=== PATIENT | male | born 1965 | race Caucasian/White ===

== ENCOUNTER → 2021-01-25 14:26 | Outpatient (CLI) | payer OTHER, SELFPAY | PROVIDERS: PCP Nurse Practitioner Family; Visit Provider Nurse Practitioner Family | DX: R40.0 Somnolence (principal); R06.83 Snoring ==

== ENCOUNTER → 2022-02-19 10:26 | Outpatient (CLI) | payer BC, SELFPAY ==
--- NOTE | 2022-02-19 10:35 | CT_ITS ---
FINAL REPORT CLINICAL HISTORY: H/O MALIGNANT NEOPLASM OF COLON,LLQ PAIN FINDINGS: CT OF THE ABDOMEN AND PELVIS WITH CONTRAST Axial CT images of the abdomen and pelvis were obtained after the administration of oral and iv contrast. Coronal reformatted images were also obtained and reviewed.This study was performed with techniques to keep radiation doses as low as reasonably achievable (ALARA). Individualized dose reduction techniques using automated exposure control or adjustment of mA and/or kV according to the patient's size were employed. Abdomen: The lung bases are clear. The heart is normal in size. The liver is fatty infiltrated. There is mild wall thickening of the gallbladder which is nonspecific. The spleen is unremarkable. No adrenal mass is present. The pancreas has an unremarkable appearance. There is a 4.5 cm cyst in the lower pole of the left kidney. The aorta is normal in caliber. There is no free fluid or adenopathy. There are postoperative changes of the stomach. There is a small supraumbilical hernia containing fat. Pelvis: The appendix is normal. The urinary bladder is unremarkable. No inflammatory process is seen. There is no evidence of mass or adenopathy. There is no evidence of bowel obstruction. IMPRESSION: Fatty infiltrated liver. Mild non-specific gallbladder wall thickening. Cyst in the lower pole left kidney. Reviewed, Interpreted and Dictated by Robby Estevez III, MD Transcribed by Tenisha Lechuga Authenticated and [facility]
== END ==
PROVIDERS: PCP Nurse Practitioner Family; Visit Provider Nurse Practitioner Family
DX: R10.32 Left lower quadrant pain (principal); Z85.038 Personal history of other malignant neoplasm of large intestine
CPT/HCPCS: 74177; Q9967

== ENCOUNTER 2023-09-24 17:22 | Emergency (ER) | payer BC, SELFPAY ==
[2023-09-24 17:23] VITALS: BP 144/79; PULSE 82; RESP 20; TEMP 36.6; O2SAT 95; BMI 31.4
--- NOTE | 2023-09-24 17:45 | ED_ITS ---
Discharge Plan Disposition Patient Disposition: Home, Self-Care Chief Complaint: Eye Problems Prescriptions Prescriptions: No Action cetirizine 10 MG tablet 10 mg PO DAILY metformin 1,000 MG tablet 1,000 mg PO DAILY amoxicillin-pot clavulanate 1 EACH tablet 1 tab PO Q12H 7 Days Qty: 14 0RF fluticasone propionate 120 SPR/BOT bottle 2 spr NS DAILY Qty: 1 0RF Rx Instructions: each nostril daily Referrals Follow up/Referrals: Merry Justin APRN [Primary Care Provider] - See instructions Activity Restrictions/Add. Instructions Additional Instructions/Restrictions: Call your family doctor to establish care for this visit to the emergency department and schedule follow-up within 48 hours to ensure improvement. If you have any worsening of your condition or any other concerning signs or symptoms, return to the emergency department or your primary care doctor for further evaluation. Erythromycin ointment 3 times daily for 5 days. Clinical Impressions Clinical Impression: Intraocular foreign body Qualifiers: Encounter type: initial encounter Laterality: right Qualified Code(s): S05.51XA - Penetrating wound with foreign body of right eyeball, initial encounter Discharge ED Provider: Bryan Pressley General Adult HPI General Chief complaint: Eye Problems Stated complaint: FO09/24 poss metal Time Seen by Provider: 09/24/23 17:29 Mode of Arrival: Ambulatory Source of Information: Patient Limitations: No Limitations Description of Symptoms (Recalled from ER Triage Doc. by RN): pt was working wit h metal and he believes got a piece of rust in his right eye around 1430 today. pt flushed eye out with water but still feels like something is in there. History of Present Illness HPI narrative: Well-appearing 58-year-old male presenting with foreign body in his right eye. He was sitting [id number] just before arrival. Calera the metal hit his eye. Having mild to moderate pain. No vision changes, nausea vomiting, headache, or any other concerns. Last tetanus was too long ago to remember. Related Data Home Medications Medication Instructions Recorded Confirmed cetirizine 10 mg tablet 10 mg PO DAILY ALLERGIES 05/01/19 05/01/19 metformin 1,000 mg tablet 1,000 mg PO DAILY DM 05/01/19 05/01/19 Previous Rx's Medication Instructions Recorded amoxicillin 875 mg-potassium 1 tab PO Q12H 7 days #14 tabs 05/01/19 clavulanate 125 mg tablet fluticasone propionate 50 2 spr NS DAILY ##1 05/01/19 mcg/actuation nasal spray,suspension Allergies Allergy/AdvReac Type Severity Reaction Status Date / Time No Known Allergies Allergy Verified 05/01/19 14:17 [facility] Disclaimer: The information contained in this section may have been updated after the patient was seen, as this information can be updated by other users. Social History Smoking Status: Current every day smoker tobacco type: cigarettes packs per day: 1 alcohol intake: never current occupational status: other Travel in the last 8 weeks: None ROS Obtained: Yes All systems reviewed & no additional complaints except as documented Physical Exam General General appearance: alert and in no apparent distress Head Head exam: atraumatic and normocephalic Eye Eye exam: Present PERRL, EOMI and other (Metal foreign body at 7 o'clock position overlying right iris. No Layo sign on fluorescein exam. Focal uptake. No further foreign bodies on upper or lower lids) ENT ENT exam: Present mucous membranes moist Neck Neck exam: Present normal inspection, full ROM and trachea midline Respiratory Respiratory exam: Absent respiratory distress, wheezes, stridor, accessory muscle use or prolonged expiratory phase Cardiovascular Cardiovascular exam: Present normal rhythm Abdominal Exam Abdominal exam: Present soft; Absent distention, tenderness, guarding, rebound or rigidity Extremities Exam Extremities exam: Absent edema Neurological Exam Neurological exam: Present alert, oriented X3, CN II-XII intact and normal gait; Absent motor sensory deficit Skin Skin exam: Present warm and dry; Absent diaphoresis or erythema Medical Decision Making Medical Records Medical records reviewed: Yes I reviewed the patient's medical records. Burton Inquiry Pt receiving controlled substance: No Burton was queried for this patient: No Vital Signs: 09/24/23 17:23 Temperature 97.9 F Temperature Source Oral Pulse Rate [Right Radial] 82 Respiratory Rate 20 Blood Pressure [Right Arm] 144/79 H Blood Pressure Mean [Right Arm] 100 02 Sat by Pulse Oximetry 95 Oxygen Delivery Method Room Air Medical Decision Narrative: Well-appearing 58-year-old male presenting with foreign body in his right eye. He was sitting vxeeo-cx-[id number] just before arrival. Calera the metal hit his eye. Having mild to moderate pain. No vision changes, nausea vomiting, headache, or any other concerns. Last tetanus was too long ago to remember. History was obtained via conversation with patient. On arrival, patient hemodynamically stable, alert, oriented x4, appropriate, GCS 15, moving all extremities spontaneously, pupils equal and reactive to light. Full physical exam performed and significant for focal uptake around metalforeign body. Metal foreign body at 7 o'clock position overlying the iris. No Layo sign. Otherwise normal Differential includes foreign body, among others. Patient was given Tdap, tetracaine, fluorescein for symptomatic management and correction of underlying abnormalities. Patient was given erythromycin ointment here in the emergency department for home-going. Metal foreign body removed, see foreign body note. Because patient at baseline without signs or symptoms of clinical decompensation, deemed appropriate for discharge. Results were relayed to patient who voiced understanding and were agreeable to outpatient management and follow up. At the time of discharge the patient was hemodynamically stable, tolerating PO, and mobilizing appropriately. Procedures Eye Exam/FB Removal Location: eye (R) Topical anesthetic used: tetracaine Fluorescein Stick(s) used: Yes Time Out performed: No Procedure performed under: direct visualization with magnification Foreign body: metal Evidence of corneal penetration: No Technique: irrigation and cotton tip swab Post-procedure medication: ophthalmic antibiotic and topical anesthetic Patient tolerated procedure: well Critical Care Critical Care Time Critical Care Time: No
[2023-09-24] MEDS: TET/DIPHTH/PERT-ADULT 0.5ML SYRINGE 0.5 ML IM (17:58)
--- NOTE | 2023-09-24 17:59 | PC.NURSE ---
dr montilla at bedside to update pt and family
[2023-09-24] MEDS: FLUORESCEIN SODIUM 1MG STRIP 1 MG OP (18:03)
[2023-09-24] MEDS: TETRACAINE 0.5% OPTH SOL 15ML OP (18:04)
[2023-09-24 18:06] VITALS: BP 145/70; PULSE 70; RESP 20; TEMP 36.7; O2SAT 97
== END 2023-09-24 18:07 | disposition home or self-care (01) ==
PROVIDERS: Emergency Provider Emergency Medicine; PCP Nurse Practitioner Family
DX: F17.210 Nicotine dependence, cigarettes, uncomplicated; W22.8XXA Striking against or struck by other objects, initial encounter; T15.01XA Foreign body in cornea, right eye, initial encounter
CPT/HCPCS: 65205; 90471; 90715; 99283

== ENCOUNTER 2023-11-03 15:11 | Outpatient (CLI) | payer SELFPAY ==
--- NOTE | 2023-11-03 15:24 | XR_ITS ---
FINAL REPORT CLINICAL HISTORY: LT FOOT PAIN FINDINGS: Left foot Three views were obtained. There is no acute fracture or dislocation. The joint spaces appear normal. No soft tissue abnormality is identified. There is a posterior calcaneal spur. IMPRESSION: No acute process. Reviewed, Interpreted and Dictated by Robby Estevez III, MD Transcribed by Ria Weller Authenticated and [facility]
--- NOTE | 2023-11-03 15:24 | XR_ITS ---
FINAL REPORT CLINICAL HISTORY: LT ANTERIOR KNEE PAIN COMPARISON: None FINDINGS: LEFT KNEE: Three views of the left knee were obtained. There is no acute fracture or dislocation. Visualized joint spaces are normally aligned. There is no joint effusion. There is anterior soft tissue swelling. IMPRESSION: Soft tissue swelling without acute bony abnormality. Reviewed, Interpreted and Dictated by Robby Estevez III, MD Transcribed by Britany Bartlett Authenticated and . [facility]
== END 2023-11-03 23:59 ==
PROVIDERS: PCP Nurse Practitioner Family; Visit Provider Nurse Practitioner Family
DX: M25.562 Pain in left knee (principal); M79.672 Pain in left foot
CPT/HCPCS: 73562; 73630

== ENCOUNTER 2023-12-23 15:19 | Outpatient (CLI) | payer OTHER, BC, SELFPAY ==
--- NOTE | 2023-12-23 15:27 | MR_ITS ---
FINAL REPORT TECHNIQUE: Multiplanar MR without contrast CLINICAL HISTORY: ACUTE KNEE PAIN FINDINGS: Articular cartilage: Grade III chondromalacia patella. Mild diffuse thinning of the articular cartilage. Marrow signal: A few sclerotic lesions are seen which are likely bone islands. No marrow edema. Joint fluid: Small joint effusion with a presumed ganglion cyst measuring 16 mm along the posterior tibiofibular joint. Menisci: Normal morphology without tear Ligaments: Collateral and cruciate ligaments intact IMPRESSION: Degenerative changes without meniscal or ligamentous injury. Reviewed, Interpreted and Dictated by Nola Tracy MD Transcribed by Heather Kent Authenticated and [facility]
== END 2023-12-23 23:59 | disposition home or self-care (01) ==
LOC: RAD 15:20
PROVIDERS: PCP Nurse Practitioner Family; Visit Provider Nurse Practitioner Family
DX: M25.562 Pain in left knee (principal)
CPT/HCPCS: 73721

== ENCOUNTER 2023-12-28 13:18 | Outpatient (CLI) | payer OTHER, SELFPAY ==
--- NOTE | 2023-12-28 13:24 | XR_ITS ---
FINAL REPORT CLINICAL HISTORY: LT SHOULDER PAIN FINDINGS: LEFT SHOULDER 3 views of the left shoulder were obtained. There is no acute fracture or dislocation. There are mild degenerative changes of the acromioclavicular and glenohumeral joints. Visualized joint spaces are normally aligned. Soft tissues are unremarkable. IMPRESSION: No acute bony abnormality. Reviewed, Interpreted and Dictated by Robby Estevez III, MD Transcribed by Heather Kent Authenticated and [facility]
== END 2023-12-28 23:59 | disposition home or self-care (01) ==
LOC: RAD 13:21
PROVIDERS: PCP Nurse Practitioner Family; Visit Provider Nurse Practitioner Family
DX: M25.512 Pain in left shoulder (principal)
CPT/HCPCS: 73030

== ENCOUNTER 2024-09-02 12:41 | Outpatient (CLI) | payer BC, SELFPAY ==
--- NOTE | 2024-09-02 12:48 | MR_ITS ---
FINAL REPORT CLINICAL HISTORY: LT SHOULDER PAIN FINDINGS: Multi planar MR imaging of the left shoulder was performed. There is a large partial full-thickness tear of the distal supraspinatus tendon. Tendon is retracted 10 mm. Fluid is seen in the subacromial/subdeltoid bursa. The anterior and posterior glenoid anthony appear intact. The biceps tendon appears intact. There are moderate hypertrophic changes of the AC joint. IMPRESSION: High-grade partial full-thickness tear of the supraspinatus tendon. Moderate hypertrophic changes of osteoarthritis of the AC joint. Reviewed, Interpreted and Dictated by Devon Leblanc MD Transcribed by Ria Weller Authenticated and [facility]
--- NOTE | 2024-09-02 12:54 | XR_ITS ---
FINAL REPORT CLINICAL HISTORY: RULE OUT MEALLIC FOREIGN BODY FOR MRI FINDINGS: ORBITS Look up and look down views were obtained. No fracture is identified. The sinuses are clear. No foreign body is identified. IMPRESSION: No acute process. Reviewed, Interpreted and Dictated by Devon Leblanc MD Transcribed by Kala Grewal Authenticated and [facility]
== END 2024-09-02 23:59 | disposition home or self-care (01) ==
LOC: RAD 12:42
PROVIDERS: PCP Nurse Practitioner Family; Visit Provider Nurse Practitioner Family
DX: M25.512 Pain in left shoulder (principal); G89.29 Other chronic pain; Z03.823 Encounter for observation for suspected inserted (injected) foreign body ruled out
CPT/HCPCS: 70200; 73221

== ENCOUNTER 2024-12-12 08:39 | Outpatient (CLI) | payer BC, SELFPAY ==
--- NOTE | 2024-12-12 08:42 | XR_ITS ---
FINAL REPORT CLINICAL HISTORY: Right shoulder pain x 1 yr. fall x 1 yr COMPARISON: None FINDINGS: 2 views of the right shoulder were obtained. There is no acute fracture or dislocation. There is degenerative joint disease. There is no acute soft tissue abnormality. IMPRESSION: Degenerative joint disease without acute osseous abnormality of the right shoulder. Reviewed, Interpreted and Dictated by Lauren Dickinson MD Transcribed by Brandy Spears Authenticated and [facility]
--- NOTE | 2024-12-12 08:42 | XR_ITS ---
FINAL REPORT CLINICAL HISTORY: Left shoulder pain x 1 yr. fall x 1 yr COMPARISON: 12/28/2023 FINDINGS: 2 views of the left shoulder were obtained. There is no acute fracture or dislocation. There is degenerative joint disease, which is similar to the prior exam. There is no acute soft tissue abnormality. IMPRESSION: Degenerative joint disease without acute osseous abnormality of the left shoulder. Reviewed, Interpreted and Dictated by Lauren Dickinson MD Transcribed by Brandy Spears Authenticated and [facility]
== END 2024-12-12 23:59 | disposition home or self-care (01) ==
LOC: RAD 08:40
PROVIDERS: PCP Nurse Practitioner Family; Visit Provider Physician Assistant
DX: M19.012 Primary osteoarthritis, left shoulder (principal); M19.011 Primary osteoarthritis, right shoulder
CPT/HCPCS: 73030

== ENCOUNTER 2025-05-28 11:54 | Outpatient (CLI) | payer BC, SELFPAY ==
[2025-05-28 19:48] LABS: Influenza A, PCR Not Detected (NotDetected); Influenza B, PCR Not Detected (NotDetected)
[2025-05-28 21:12] LABS: Coronavirus 19, PCR Detected (NotDetected)
--- OUTSIDE RECORDS SUMMARY | 2025-05-29 11:56 | XMS_ITS | Referral Summary ---
Author Organization [employer] ([place], [place], [place], [place]) Address [address] [place] [address] Care Team Providers Care Commercial Collections Driver Name Role Phone Provider, Generic External Data Primary Care Pro vider Unavailable Social History Tobacco Use Types Packs/Day Years Used Date Smoking Tobacco: Never Assessed Food Insecurity Answer Date Recorded Food run out past 12 months Not on file 08/24 Food did not last past 12 months Not on file 09/11/2023 Employment Answer Date Recorded Help finding and keeping a job Not on file 0 09/11/2023 Family and Community Support Answer Jose e Recorded Help with Day to Day Activities Not on file 09/11/2023 Feeling Lonely or Isolated Not on file 09/11 Educational Attainment Answer Date Harry rded Speak language other than Congolese at home Not on file 09/11/2023 Want help with school or training Not on file 09/11/2023 Substance Use Answer Date Recorded Used prescription meds for non-medical reasons N ot on file 09/11/2023 Used illegal drugs past 12 months Not on file 09/11/2023 Sex and Gender Information Value Date Recorded Sex Assigned at Not on file Legal Sex Male 7:15 PM CDT Gender Identity Not on file Sexual Orientation Not on file Plan of Treatment Not on file Care Teams Commercial Collections Driver Relationship Specialty Start Date End Date Provider, Generic External Data PCP - General 09/24/22
--- OUTSIDE RECORDS SUMMARY | 2025-05-29 11:56 | XMS_ITS | Clinical Summary ---
Author Organization [employer] ([place], [place], [place], [place]) Address [address] [place] [address] Care Team Providers Care Bias Binding Cutter Name Role Phone Provider, Generic External Data [...] Date Harry rded Speak language other than Mauritanian at home Not on file 09/11/2023 Want [...] Orientation Not on file Plan of Treatment Health Maintenance Due Date Last Done Comments CT Colonography 1966 Colonoscopy 1966 Colorectal Cancer Screening 1966 FOBT/FIT 1966 Fit-DNA (Cologuard) 1966 Sigmoidoscopy 1966 Depression Screening (12+) 1978 Tobacco Cessation Counseling and Screening (12+) 06/09 HIV Screening 1981 Hepatitis C Screening 1984 Lipid Panel 2001 Pneumococcal 50+ years (1 of 1 - PCV) 2016 Shingles Vaccine (Zoster) (1 of 2) 2016 COVID-19 VACCINE ( season) 2025 Influenza Vaccine (#1) 2025 DTAP/TDAP/TD VACCINES (2 - Td or Tdap) 09/24/2033 Care Teams Bias Binding Cutter Relationship Specialty Start Date End Date Provider, Generic External Data PCP - General 09/24/22
--- OUTSIDE RECORDS SUMMARY | 2025-05-29 11:56 | XMS_ITS | Continuity of Care Document ---
Author Organization [facility], SURGERY SCHEDULE Address [address] [place] [address] Care Team Providers Care Heat Treat Technician Name Role Phone LB COONEY Hematology/Oncology DRAGAN ISAACS Primary Care Provider Assessment No assessment recorded. Plan of Treatment Reminders Order Date Submit Date Provider Last Modified By Organization Details Last Modified Time Details Appointments None record ed. Lab None record ed. Referral None record ed. Procedures None record ed. Surgeries None record ed. Imaging None record ed. Medication Orders None record ed. Patient TargetsNo targets recorded. Patient InstructionsNo instructions recorded. Reason for Referral None Reported. Results Created Date Observation Date Name Description Value Unit Range Abnormal Flag Note LastModifiedBy Organization Detail LastModifiedTime 04/03/20 25 04/03/2025 SURGI XAVI surgical SEE BELOW normal Surgi xavi Patho logy Repor shahbaz GARNICA NAME: GIORGIO PASTOR PATH: [id number] DATE of : 06/09 3 Copy to: Diagn osis: Desce nding polyp : Tubul ar adeno ma. SOURC E OF SPECI MEN: COLON POLYP , DESCE NDING CLINI XAVI INFOR MATIO N: ONE SMALL 4-6 mm POLYP DESCE NDING COLON D 12.4 Gross Descr iptio n: Nathan nt's name and date of verif ied. Recei florencia in forma nas label ed with the nathan nt's name and desig nated desc endin g polyp are two fragm ents of pale hopkins tissu e measu ring 0.3 and 0.6 cm. Entir pamela submi tted in one casse tte label ed A1. SB 04/03 02:42 PM Micro scopi c Descr iptio n: A micro scopi c exami natio n has been perfo rmed and the resul t(s) are as noted above . MD Ryan SWARTZe d Out Date: 04/04 09:27 Page 1 of 1 Not Available [facility] [address] [place] [address], [id number], 04/04/2025 09:28:15 Result Notes None recorded. 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 Medical Equipment None Reported. Allergies No known drug allergies Medications Name Sig Start Date Stop Date Status Note LastModified by Organization Details LastModified Time vitamin d3 (tonie) 50mcg cap TAKE 1 CAPSULE BY MOUTH ONCE DAILY active Not Available Not Available No t Available amoxicillin 500 mg capsule TAKE 1 CAPSULE BY MOUTH THREE TIMES DAILY 03/12 completed Not Available Not Available Not Available methocarbam ol 500 mg tablet TAKE 2 TABLETS BY MOUTH EVERY 6 HOURS NEEDED active Not Available Not Available No t Available metformin 500 mg tablet active Not Available Not Available Not Available sildenafil 50 mg tablet TAKE 1 TABLET BY MOUTH ONCE DAILY NEEDED active Not Available Not Available No t Available cetirizine 10 mg tablet active Not Available Not Available Not Available ibuprofen 800 mg tablet TAKE 1 TABLET BY MOUTH THREE TIMES DAILY WITH FOOD active Not Available Not Available No t Available amlodipine 5 mg tablet TAKE 1 TABLET BY MOUTH ONCE DAILY active Not Available Not Available No t Available sildenafil 100 mg tablet TAKE 1 TABLET BY MOUTH ONCE DAILY NEEDED active Not Available Not Available No t Available meloxicam 7.5 mg tablet TAKE 1 TABLET BY MOUTH ONCE DAILY active Not Available Not Available No t Available losartan 100 mg-hydrochl orothiazide 25 mg tablet TAKE 1 TABLET BY MOUTH ONCE DAILY active Not Available Not Available No t Available oxycodone-a cetaminophe n 5 mg-325 mg tablet TAKE 1 TABLET BY MOUTH EVERY 4 HOURS NEEDED FOR PAIN active Not Available Not Available No t Available methocarbam ol 750 mg tablet TAKE 1 TABLET BY MOUTH TWICE DAILY NEEDED active Not Available Not Available No t Available doxycycline monohydrate 100 mg capsule TAKE 1 CAPSULE BY MOUTH TWICE DAILY FOR 10 DAYS 03/12 completed Not Available Not Available Not Available cyanocobala min (vit B-12) 1,000 mcg/mL injection solution USE DIRECTED ONCE A WEEK INTRAMUSC ULARLY FOR 4 WEEKS THEN ONCE A MONTH active Not Available Not Available No t Available hydrochloro thiazide 25 mg tablet active Not Available Not Available No t Available gabapentin 100 mg capsule active Not Available Not Available Not Available albuterol sulfate HFA 90 mcg/actuati on aerosol inhaler INHALE 2 PUFFS BY MOUTH EVERY 4 HOURS NEEDED active Not Available Not Available No t Available losartan 100 mg tablet active Not Available Not Available Not Available rosuvastati n 5 mg tablet TAKE 1 TABLET BY MOUTH ONCE DAILY AT BEDTIME FOR 30 DAYS active Not Available Not Available No t Available rosuvastati n 10 mg tablet TAKE 1 TABLET BY MOUTH ONCE DAILY AT BEDTIME active Not Available Not Available No t Available peg 3350-electr olytes 236 gram-22.74 gram-6.74 gram-5.86 gram solution DIRECTED active Not Available Not Available No t Available cholecalcif lew (vitamin D3) 50 mcg (2,000 unit) capsule TAKE 1 CAPSULE BY MOUTH ONCE DAILY active Not Available Not Available No t Available Suprep Bowel Prep Kit 17.5 gram-3.13 gram-1.6 gram oral solution Take 177 mL by oral route as directed. 01/19 completed Not Available Not Available Not Available Clenpiq 10 mg-3.5 gram-12 gram/160 mL oral solution As directed 2020 active Not Available Not Available Not Avai lable Plenvu 140 gram-9 gram-5.2 gram powder packs MIX AND TAKE DIRECTED active Not Available Not Available No t Available Ozempic 1 mg/dose (4 mg/3 mL) subcutaneou s pen injector INJECT 1 MG SUBCUTANE OUSLY ONCE A WEEK active Not Available Not Available No t Available Mounjaro 7.5 mg/0.5 mL subcutaneou s pen injector INJECT 1 SYRINGE SUBCUTANE OUSLY ONCE A WEEK active Not Available Not Available No t Available Mounjaro 10 mg/0.5 mL subcutaneou s pen injector INJECT 1 AUTO-INJE CTOR SUBCUTANE OUSLY ONCE A WEEK active Not Available Not Available No t Available Ozempic 0.25 mg or 0.5 mg (2 mg/3 mL) subcutaneou s pen injector INJECT 0.5MG SUBCUTANE OULSY ONCE A WEEK active Not Available Not Available No t Available Suflave 178.7 gram-7.3 gram-0.5 gram oral solution TAKE DIRECTED active Not Available Not Available No t Available Vitals None Recorded Social History Question Answer Notes LastModified by Organizat ion Details LastModified Time Tobacco Smoking Status Current Every Day Smoker Samanta Huerta [facility] 08/06/2016 11:26:12 What Was The Date Of Your Most Recent Tobacco Screening? 01/19/2019 Information n ot available 10/11/2019 How Much Tobacco Do You Smoke? 2 PPD [email or web address] Information not available 08/06/2016 How Many Years Have You Smoked Tobacco? 30 Information not available 08/06/2016 Sex: Unknown Functional Status None recorded. Mental Status None recorded. Family History Nothing Reported Notes:family history of canc er, sister ovarin cancer hypertension mother, father, sister, maternal grandmother and grandfather stroke syndrome, paternal grandmother, sister, mother family history of heart attack Medical History Condition Response Cancer Y Hypertension Past Encounters Encounter ID Performer Location Encounter Start Date Encounter Closed Date Diagnosis/Indication Diagnosis SNOMED-CT Code Diagnosis ICD10 Code Diagnosis IMO Codes Diagnosis Note [id number] ELLY WARE MD SURGERY SCHEDULE [address] [place] [address] 04/03/2025 06:23:54 04/03/2025 06:26:24 Health Concerns Section Related Observation LastModified by Organization Detai ls LastModified Time None Recorded Concern Status LastModified by Organization Details LastModified Time None Recorded Payers Encounter Date Sequence Insurance Name Policy Number Policy Gallo Covered Member ID Gallo Member ID Guarantor Name 04/03/2025 2 [place] [employer] [facility] [id number] 1 Alexis Miller [id number] Alexis Miller
--- OUTSIDE RECORDS SUMMARY | 2025-05-29 11:56 | XMS_ITS | Data Portability ---
Author Organization [place] DAVIS Dennis [place] [facility] Address [address] [facility] [facility] [address] [place] [address] Care Team Providers Care Petal Cutter Name Role Phone LB COONEY Hematology/Oncology DRAGAN ISAACS Primary Care Provider Assessment No assessment recorded. Plan of Treatment Reminders Order Date Submit Date Provider Last Modified By Organization Details Last Modified Time Details Appointments None recorded. Lab urinalysis panel, auto [address] [facility], [address], [place], [address], 3 09:49:28 testosteron e, total, serum 2022 023 [email or web address] [facility], [address] [place] [address], [address], 3 14:33:02 testosteron e, free, serum 2022 023 [facility], [address] [place] [address], [address], 3 14:33:02 Referral None recorded. Procedures None recorded. Surgeries None recorded. Imaging None recorded. Medication Orders None recorded. Patient TargetsNo targets recorded. Patient InstructionsNo instructions recorded. Reason for Referral None Reported. Results Created Date Observation Date Name Description Value Unit Range Abnormal Flag Note LastModifiedBy Organization Detail LastModifiedTime 02/12/20 21 02/11/2021 surgi xavi patho logy study surgical SEE BELOW Depar tment of Patho logy Surgi xavi Patho logy Repor t NAME: GIORGIO PASTOR HY PATH. :-2 Copy to: Diagn osis: A) Ascen ding polyp : Fragm ents of tubul ar adeno ma. No evide nce of high- grade dyspl shanique or malig anup . B) Trans verse polyp : Tubul ar adeno ma. No evide nce of high- grade dyspl shanique or malig anup . SOURC E OF SPECI MEN: COLON POLYP , ASCEN DING COLON POLYP , TRANS VERSE CLINI XAVI INFOR MATIO N: HX OF POLYP S Gross Descr iptio n: A) Recei florencia in forma nas label ed with the patie nt's name and desig nated as asce nding polyp are two fragm ents of pale hopkins tissu e each measu ring appro ximat pamela 0.3 cm. Entir pamela submi tted in one casse tte. B) Recei florencia in forma nas label ed with the patie nt's name and desig nated as chandra svers e polyp is a singl e fragm ent of pale hopkins tissu e measu ring 0.5 cm. Entir pamela submi tted in one casse tte. MT 02/11 11:02 AM Micro scopi c Descr iptio n: A micro scopi c exami natio n has been perfo rmed. MAGALI Tan MD Miesha d Out Date: 02/12 11:00 Page 1 of 1 Not Available [facility] [address], [place], [address], 02/12/2021 11:01:48 03/23/20 23 03/23/2023 SURGI XAVI surgical SEE BELOW normal Depar tment of Patho logy Surgi xavi Patho logy Repor t NAME: GIORGIO PASTOR PATH. :ST-2 47 Copy to: Diagn osis: Ascen ding polyp s: Multi ple fragm ents of tubul ar adeno mas -Nega tive for high- grade dyspl shanique and malig anup SOURC E OF SPECI MEN: COLON POLYP , ASCEN DING CLINI XAVI INFOR MATIO N: HX OF COLON CA Gross Descr iptio n: Recei florencia in forma nas label ed with the patie nt's name and desig nated as asce nding polyp s are seven fragm ents of pale hopkins tissu e rangi ng in size from 0.2 to 0.6 cm. Entir pamela submi tted in one casse tte. MT 03/23 12:07 PM Micro scopi c Descr iptio n: Micro scopi c exami natio n perfo rmed. MINNIE Rico BELTRAN SALOMON-P MD MYRANDA Miesha d Out Date: 03/24 09:52 Page 1 of 1 Not Available [facility] [address] [place], [address], 03/24/2023 09:53:17 07/07/20 23 07/07/2023 TESTO STERO NE, TOTAL testosterone , total 367 NG/dL 193-74 0 normal Refer ence range is for age 50 years and over. Not Available [facility] [address] [place], [address], 07/07/2023 19:17:25 07/07/20 23 07/13/2023 TESTO STERO NE, FREE testosterone , free 43.0 pg/mL 46.0-2 24.0 low (Note ) The jacqueline ntrat ion of free testo stero ne is deriv ed from a padmini penaloza model using total testo stero ne by LCMSM S, sex hormo ne kiah ng globu nas and album in. This test was devel oped and its eliseo tical perfo rmanc e aleksey cteri stics have been deter mined by [facility]. It has not been clear ed or appro florencia by the FDA. This assay has been valid ated pursu ant to the CLIA regul ation s and is used for clini xavi purpo ses. MDF med fusio n [address] [facility] [address] [place] [address] [phone] Ady de MD Not Available [facility] [address], [place], [address], 07/13/2023 05:18:07 08/07/20 23 08/07/2023 urina lysis panel , auto Unknown Analyte Clean Catch Not Available [facility] [address], [place], [address], 08/07/2023 09:35:01 08/07/20 23 08/07/2023 urina lysis panel , auto Unknown Analyte Yellow Not Available [facility] [address], [place], [address], 08/07/2023 09:35:01 08/07/20 23 08/07/2023 urina lysis panel , auto Unknown Analyte Clear Not Available [facility] [address], [place], [address], 08/07/2023 09:35:01 08/07/20 23 08/07/2023 urina lysis panel , auto Unknown Analyte 1.000 Not Available [facility] [address], [place], [address], 08/07/2023 09:35:01 08/07/20 23 08/07/2023 urina lysis panel , auto Unknown Analyte 1.003- 1.035 Not Available [facility] [address], [place], [address], 08/07/2023 09:35:01 08/07/20 23 08/07/2023 urina lysis panel , auto Unknown Analyte 7.0 Not Available [facility] [address], [place], [address], 08/07/2023 09:35:01 08/07/20 23 08/07/2023 urina lysis panel , auto Unknown Analyte 5.0-8. 0 Not Available [facility] [address], [place], [address], 08/07/2023 09:35:01 08/07/20 23 08/07/2023 urina lysis panel , auto Unknown Analyte 75 Adam/ul (+) Not Available [facility] [address], [place], [address], 08/07/2023 09:35:01 08/07/20 23 08/07/2023 urina lysis panel , auto Unknown Analyte Negati ve Not Available [facility] [address], [place], [address], 08/07/2023 09:35:01 08/07/20 23 08/07/2023 urina lysis panel , auto Unknown Analyte Negati ve Not Available [facility] [address], [place], [address], 08/07/2023 09:35:01 08/07/20 23 08/07/2023 urina lysis panel , auto Unknown Analyte Negati ve Not Available [facility] [address], [place], [address], 08/07/2023 09:35:01 08/07/20 23 08/07/2023 urina lysis panel , auto Unknown Analyte Negati ve Not Available [facility] [address], [place], [address], 08/07/2023 09:35:01 08/07/20 23 08/07/2023 urina lysis panel , auto Unknown Analyte Negati ve Not Available [facility] [address], [place], [address], 08/07/2023 09:35:01 08/07/20 23 08/07/2023 urina lysis panel , auto Unknown Analyte Normal Not Available [facility] [address], [place], [address], 08/07/2023 09:35:01 08/07/20 23 08/07/2023 urina lysis panel , auto Unknown Analyte Normal Not Available [facility] [address], [place], [address], 08/07/2023 09:35:01 08/07/20 23 08/07/2023 urina lysis panel , auto Unknown Analyte 15 mg/dl (Sm) Not Available [facility] [address], [place], [address], 08/07/2023 09:35:01 08/07/20 23 08/07/2023 urina lysis panel , auto Unknown Analyte Negati ve Not Available [facility] [address], [place], [address], 08/07/2023 09:35:01 08/07/20 23 08/07/2023 urina lysis panel , auto Unknown Analyte 4 mg/dl Not Available [facility] [address], [place], [address], 08/07/2023 09:35:01 08/07/20 23 08/07/2023 urina lysis panel , auto Unknown Analyte Normal 1 mg/dl Not Available [facility] [address], [place], [address], 08/07/2023 09:35:01 08/07/20 23 08/07/2023 urina lysis panel , auto Unknown Analyte 1 mg/dl (+) Not Available [facility] [address], [place], [address], 08/07/2023 09:35:01 08/07/20 23 08/07/2023 urina lysis panel , auto Unknown Analyte Negati ve Not Available [facility] [address], [place], [address], 08/07/2023 09:35:01 08/07/20 23 08/07/2023 urina lysis panel , auto Unknown Analyte Negati ve Not Available [facility] [address], [place], [address], 08/07/2023 09:35:01 08/07/20 23 08/07/2023 urina lysis panel , auto Unknown Analyte Negati ve Not Available [facility] [address], [place], [address], 08/07/2023 09:35:01 04/03/20 25 04/03/2025 SURGI XAVI surgical SEE BELOW normal Surgi xavi Patho logy Yessenia LU NT NAME: GIORGIO PASTOR PATH: [id number] [...] resul t(s) are as noted above . NE NICOLAS MD Miesha d Out Date: 04/04 09:27 Page 1 of 1 Not Available [facility] [address] [place] [address], [address], 04/04/2025 09:28:15 Result Notes None recorded. 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 541744535 Completed 201401/19/2019 From Automated Load;Prov ider: Yeyo Cooney tatus: Active LB COONEY MD [address] [place] [address], [address], [facility] 9 11:50:19 Malignan t neoplasm of large intestin e 164473405 Active 2018 From Automated Load;Prov ider: Yeyo Cooney tatus: Active LB COONEY MD [address] [place] [address], [address], [facility] 9 11:50:19 History of malignan t neoplasm of colon 196113553 Active 2018 LB COONEY MD [address] [place], [address], [facility] 9 11:50:27 Problem Notes None recorded. [...] Available Not Available No t Available Vitals Date Recorded Body height Body mass index (BMI) Body weight Provider Name and Address Organization Details Last Updated DateTime 07/07/2023 187.96 cm 30.3 kg/m2 624615.8 g Carolyn Appleerd [facility] 07/07/2023 17:07:36 Date Recorded Body height Body mass index (BMI) Body weight Provider Name and Address Organization Details Last Updated DateTime 08/07/2023 187.96 cm 30.3 kg/m2 114675.8 g Carolyn Olvera [facility] 08/07/2023 09:20:57 Social History Question Answer Notes LastModified by Organizat ion Details LastModified Time Tobacco Smoking Status [facility] 11:26:12 What Was The Date Of Your Most Recent Tobacco Screening? 01/19/2019 Information n ot available 10/11/2019 How Much Tobacco Do You Smoke? 2 PPD [email or web address] Information not available 08/06/2016 How Many Years [...] ICD10 Code Diagnosis IMO Codes Diagnosis Note [id number] LB COONEY MD [facility] [address] [address] [place] [address] 08/06/2016 10:51:32 08/06/2016 11:50:32 Malignant neoplasm of colon 750365304 C18.9 Screening colonoscopy 44 0792195 Z12.11 [id number] ELLY WARE MD SURGERY SCHEDULE [address] [place] [address] 02/16/2017 07:21:04 02/16/2017 07:28:34 [id number] LB COONEY MD [facility] [address] [address] 01/19/2019 10:03:19 01/19/2019 11:54:43 History of malignant neoplasm of colon 287096287 Z85.254 [id number] ELLY WARE MD SURGERY SCHEDULE [address] [place] [address] 1 02/14/2019 06:33:34 02/14/2019 06:35:40 [id number] ELLY WARE MD SURGERY SCHEDULE [address] [place] [address] 1 02/11/2021 06:23:44 02/11/2021 06:24:23 [id number] ELLY WARE MD SURGERY SCHEDULE [address] [place] [address] 1 03/23/2023 06:23:26 03/23/2023 06:24:39 [id number] ALEXIS SY MD [facility] [address] [address] 07/07/2023 12:59:42 07/07/2023 16:39:18 Male hypogonadism 74291503 E29.1 Primary er ectile dysfunction 894702729 N52.9 We did discuss timing of dosages regarding his sildenafil . He will follow-up in 1 month [id number] MD ARSEN FISHER [facility] [address],[place] [address] 0 08/07/2023 09:04:03 08/07/2023 10:15:23 Primary erectile dysfunction 339126202 N52.9 He is a smoker and I also encouraged him to stop smoking. We discussed that this likely is contributi ng to some degree to his issues. [id number] ELLY WARE MD SURGERY SCHEDULE [address] [place] [address] 1 04/03/2025 06:23:54 04/03/2025 06:26:24 Health Concerns Section Related Observation LastModified by Organization Detai ls LastModified Time None Recorded Concern Status LastModified by Organization Details LastModified Time None Recorded Advance Directives Directive None Recorded Payers Insurance Date Sequence Insurance Name Policy Number Policy Gallo Covered Member ID Gallo Member ID Guarantor Name 04/03/2025 1 [place] [id number] Alexis Miller [id number] Alexis Miller 04/03/2025 1 [employer] (PPO) Alexis Miller [id number] Alexis Miller 04/03/2025 GENERIC INSURANCE - MOVED-HOLD Alexis Miller 04/03/2025 1 [employer] (PPO) Alexis Miller [id number] Alexis Miller 04/03/2025 1 [facility] Alexis Miller [id number] Alexis Miller 03/13/2017 1 *SELF PAY* Ti yanely Dinero Angela 04/03/2025 1 [employer] [facility] (PPO) Alexis Miller [id number] Alexis Miller 04/10/2025 1 [place] [id number] Alexis Miller [id number] Alexis Miller 04/03/2025 2 [place] [id number] Alexis Miller [id number] Alexis Miller Notes Date Note Type Note Provider Name and Address Organization Details Recorded Time 07/07/2023 text/html Patient is here for initial visit regarding erectile dysfunction. He states he has had some issues for 15 years. He had previously treated with sildenafil but has had minimal improvement at 50 mg. To his knowledge he has never had a testosterone level. He does take medication for hypertension. He was treated for colon cancer in January 2012. ALEXIS SY MD [facility] [place], [address], [facility] 07/08/2023 23:09:55 08/07/2023 text/html Patient is here in follow-up of initial visit regarding erectile dysfunction. At his last visit we discussed dosage and timing of sildenafil to 100 mg. We also obtained a total testosterone level which was acceptable at 367. At most he has 60% rigidity. We discussed other options including a vacuum erection device and injection therapy. He would like to first try the vacuum erection device and he will purchase 1. He would like to just follow-up on an as-needed basis if he requires injection therapy ALEXIS SY MD [facility] [place], [address], [facility] 08/07/2023 09:49:56
== END 2025-05-28 23:59 ==
LOC: LAB.DROPOF 05-29 11:54
PROVIDERS: PCP Student in an Organized Health Care Education/Training Program; Visit Provider Student in an Organized Health Care Education/Training Program
DX: J06.9 Acute upper respiratory infection, unspecified (principal)
CPT/HCPCS: 87636

== ENCOUNTER 2025-08-02 09:43 | Outpatient (CLI) | payer BC, SELFPAY ==
--- NOTE | 2025-08-02 09:45 | XR_ITS ---
FINAL REPORT CLINICAL HISTORY: left shoulder pain FINDINGS: LEFT SHOULDER 3 views of the left shoulder were obtained. There is no acute fracture or dislocation. There is mild to moderate AC joint arthrosis. Visualized joint spaces are normally aligned. Soft tissues are unremarkable. IMPRESSION: No acute bony abnormality. Reviewed, Interpreted and Dictated by Devon Leblanc MD Transcribed by Heather Kent Authenticated and . [facility]
--- NOTE | 2025-08-02 09:45 | XR_ITS ---
FINAL REPORT CLINICAL HISTORY: right shoulder pain FINDINGS: RIGHT SHOULDER Three views demonstrate no acute fracture or dislocation. The visualized joint spaces are normally aligned. There is moderate AC joint arthrosis. The soft tissues are unremarkable. IMPRESSION: No acute process. Reviewed, Interpreted and Dictated by Devon Leblanc MD Transcribed by Heather Kent Authenticated and [facility]
== END 2025-08-02 23:59 ==
LOC: RAD 09:44
PROVIDERS: PCP Nurse Practitioner Family; Visit Provider Student in an Organized Health Care Education/Training Program
DX: M19.012 Primary osteoarthritis, left shoulder (principal); M19.011 Primary osteoarthritis, right shoulder
CPT/HCPCS: 73030